=== PATIENT | female | born 1945 | race Asian ===

== ENCOUNTER 2019-01-17 15:51 | Emergency (ER) | payer MEDICARE, OTHER ==
[~2019-01-17] VITALS: Ht 152.4 cm; Wt 63.6 kg
[~2019-01-17 15:51] MED LIST: METF-960 PO
[2019-01-17] MEDS ORDERED: AMLO-512 PO (16:16)
[2019-01-17] MEDS ORDERED: HYDR25TA PO (16:16)
[2019-01-17 16:19] LABS: GLUCOSE,POINT OF CARE 129 MG/DL (70-110)
[2019-01-17] MEDS ORDERED: CYCLOBENZAPRINE HCL 10 MG TABLET PO ONE (17:30)
[2019-01-17] MEDS ORDERED: KETOROLAC TROMETHAMINE 10 MG TABLET PO ONE (17:30)
[2019-01-17 19:19] VITALS: BP 132/66
== END 2019-01-17 19:25 | disposition home or self-care (01) ==
LOC: EMS 15:52
DX: S20.211A Contusion of right front wall of thorax, initial encounter (principal); S20.221A Contusion of right back wall of thorax, initial encounter; S43.401A Unspecified sprain of right shoulder joint, initial encounter; I10 Essential (primary) hypertension; E11.9 Type 2 diabetes mellitus without complications; W01.0XXA Fall on same level from slipping, tripping and stumbling without subsequent striking against object, initial encounter; Y93.89 Activity, other specified; Y92.89 Other specified places as the place of occurrence of the external cause; Y99.8 Other external cause status
CPT/HCPCS: 72072

== ENCOUNTER 2021-02-19 09:14 | Emergency (ER) | payer MEDICARE, OTHER ==
[~2021-02-19] VITALS: Ht 157.5 cm; Wt 57.3 kg
[~2021-02-19 09:14] MED LIST changes: +AMLO-258 PO; +HYDR25TA2 PO; -METF-960 PO
[2021-02-19] MEDS ORDERED: CYCLOBENZAPRINE HCL 10 MG TABLET PO ONE (09:45)
[2021-02-19] MEDS ORDERED: KETOROLAC TROMETHAMINE 30 MG/ML VIAL IM ONE (09:45)
[2021-02-19 10:48] VITALS: BP 110/66
== END 2021-02-19 11:36 | disposition home or self-care (01) ==
LOC: EMS 09:19
DX: M25.552 Pain in left hip (principal); M54.5 Low back pain; E78.00 Pure hypercholesterolemia, unspecified; I10 Essential (primary) hypertension
CPT/HCPCS: 73503; 96372; 99283; J1885

== ENCOUNTER 2021-07-04 21:49 | Emergency (ER) | payer MEDICARE, OTHER ==
[~2021-07-04] VITALS: Ht 165.1 cm; Wt 57.3 kg
[2021-07-05] MEDS ORDERED: IBUPROFEN 600 MG TABLET PO ONE (00:45)
[2021-07-05] MEDS ORDERED: PERTUSS(ACELL),DIPH,TET VAC/PF 0.5 ML SYRINGE IM. ONE (00:45)
[2021-07-05 01:00] VITALS: BP 135/65
== END 2021-07-05 01:41 | disposition home or self-care (01) ==
LOC: EMS 22:29
DX: S61.210A Laceration without foreign body of right index finger without damage to nail, initial encounter (principal); S60.021A Contusion of right index finger without damage to nail, initial encounter; I10 Essential (primary) hypertension; E78.00 Pure hypercholesterolemia, unspecified; Z79.899 Other long term (current) drug therapy; W23.0XXA Caught, crushed, jammed, or pinched between moving objects, initial encounter; Y93.89 Activity, other specified; Y92.89 Other specified places as the place of occurrence of the external cause; Y99.8 Other external cause status
CPT/HCPCS: 90471; 90715; 99283

== ENCOUNTER 2021-10-16 16:34 | Emergency (ER) | payer MEDICARE, OTHER ==
[~2021-10-16] VITALS: Ht 154.9 cm; Wt 57.0 kg
[2021-10-16 18:14] VITALS: BP 136/83
== END 2021-10-16 18:19 | disposition left against medical advice (07) ==
LOC: EMS 16:35
DX: M25.552 Pain in left hip (principal); Z53.21 Procedure and treatment not carried out due to patient leaving prior to being seen by health care provider

== ENCOUNTER 2022-06-03 15:23 | Emergency (ER) | payer MEDICARE, OTHER ==
[~2022-06-03] VITALS: Ht 154.9 cm; Wt 63.6 kg
[2022-06-03 15:29] VITALS: BP 110/62
[2022-06-03] MEDS ORDERED: ROSU10TA72 PO (15:39)
[2022-06-03] MEDS ORDERED: PROPARACAINE HCL 0.5% 15 ML OPHTHALMIC SOLUTION OU ONE (16:45)
[2022-06-03] MEDS ORDERED: FELO5TAB45 PO (16:48)
[2022-06-03] MEDS ORDERED: PRAV20TA4 PO (16:48)
[2022-06-03] MEDS ORDERED: METO2.5T2 PO (16:48)
[2022-06-03] MEDS ORDERED: CEPH-558 PO (17:19)
[2022-06-03] MEDS ORDERED: GENTOS OD (17:19)
== END 2022-06-03 17:27 | disposition home or self-care (01) ==
LOC: EMS 15:43
DX: H00.012 Hordeolum externum right lower eyelid (principal); E78.00 Pure hypercholesterolemia, unspecified; I10 Essential (primary) hypertension; Z98.49 Cataract extraction status, unspecified eye
CPT/HCPCS: 99282; Z7502

== ENCOUNTER 2023-06-15 13:48 | Emergency (ER) | payer MEDICARE, OTHER ==
[~2023-06-15] VITALS: Ht 152.4 cm; Wt 61.4 kg
[~2023-06-15 13:48] MED LIST changes: -AMLO-258 PO; +CEPH-558 PO; +FELO5TAB45 PO; +GENTOS OD; -HYDR25TA2 PO; +METO2.5T2 PO; +PRAV20TA4 PO
[2023-06-15 14:24] VITALS: TEMP 98.5
[2023-06-15 16:45] VITALS: BP 137/54; PULSE 64; RESP 17
== END 2023-06-15 17:00 | disposition home or self-care (01) ==
LOC: EMS 13:50
DX: M19.041 Primary osteoarthritis, right hand (principal); M79.644 Pain in right finger(s); E78.00 Pure hypercholesterolemia, unspecified; I10 Essential (primary) hypertension
CPT/HCPCS: 29280; 99283

== ENCOUNTER 2023-06-26 18:35 | Emergency (ER) | payer OTHER ==
[~2023-06-26] VITALS: Ht 154.9 cm; Wt 54.5 kg
[2023-06-26 18:39] VITALS: BP 147/72; PULSE 80; RESP 16; TEMP 97.6
== END 2023-06-26 21:03 | disposition left against medical advice (07) ==
LOC: EMS 18:38
DX: M79.645 Pain in left finger(s) (principal); Z53.21 Procedure and treatment not carried out due to patient leaving prior to being seen by health care provider
CPT/HCPCS: 99281; 73130-TC; Z7502

== ENCOUNTER 2024-09-18 16:34 | Emergency (ER) | payer MEDICARE, MEDICAID ==
[~2024-09-18] VITALS: Ht 154.9 cm; Wt 63.6 kg
[2024-09-18 16:40] VITALS: TEMP 98.3
[2024-09-18 17:06] LABS: APPEARANCE,URINE CLEAR (CLEAR); BILIRUBIN,URINE NEGATIVE (NEGATIVE); COLOR,URINE YELLOW (YELLOW); GLUCOSE, URINE (UA) NEGATIVE (NEGATIVE); KETONES,URINE NEGATIVE (NEGATIVE); LEUKOCYTE ESTERASE ,URINE NEGATIVE (NEGATIVE); NITRATE,URINE NEGATIVE (NEGATIVE); OCCULT BLOOD,URINE NEGATIVE (NEGATIVE); PH,URINE 6.5 (5.0-8.0); PROTEIN,URINE TRACE mg/dL (NEGATIVE); SPECIFIC GRAVITIY, URINE 1.025 (1.003-1.030); UROBILINOGEN,URINE <=1.0 mg/dL (<=1.0)
[2024-09-18 17:16] LABS: BACTERIA,URINE None Seen /HPF (None Seen); RBC,URINE None Seen /HPF (0-2); SQUAMOUS EPITHELIAL CELL,UR None Seen /LPF (None Seen); WBC,URINE 0-2 /HPF (0-5)
[2024-09-18 18:25] VITALS: BP 135/85; PULSE 85; RESP 15; O2SAT 99
== END 2024-09-18 18:45 | disposition home or self-care (01) ==
LOC: EMS 16:34
DX: N39.0 Urinary tract infection, site not specified (principal); E78.00 Pure hypercholesterolemia, unspecified; I10 Essential (primary) hypertension
CPT/HCPCS: 81001; 99283